=== PATIENT | male | born 1975 | race Two or more races ===

== ENCOUNTER 2019-02-21 21:27 | Emergency (ER) | payer MEDICAID ==
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
[2019-02-21 22:30] LABS: BARBITURATE SCREEN,URINE NEGATIVE (NEGATIVE); BENZODIAZEPINES SCREEN,URINE NEGATIVE (NEGATIVE); EDDP,URINE SCREEN NEGATIVE (NEGATIVE); METHAMPHETAMINE SCREEN, URINE NEGATIVE (NEGATIVE); TCA SCREEN,URINE NEGATIVE (NEGATIVE); THC SCREEN,URINE 50 NG/ML POSITIVE (NEGATIVE)
[2019-02-21 22:41] LABS: CHLORIDE,CL 104 mmol/L (98-107); SODIUM,NA 141 mmol/L (136-145)
[2019-02-21 22:42] LABS: ANION GAP 18.4 mmol/L (10-20)
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
== END 2019-02-21 22:50 ==
LOC: VM.ED 21:27
DX: S10.91XA Abrasion of unspecified part of neck, initial encounter (principal); S20.319A Abrasion of unspecified front wall of thorax, initial encounter; R45.851 Suicidal ideations; R07.2 Precordial pain; Y04.2XXA Assault by strike against or bumped into by another person, initial encounter
CPT/HCPCS: 36415; 71046; 80053; 80305-QW; 81001; 83735; 84443; 84484; 85025; 85610; 93005; 93010; 99284-GF; 99285-25; G0480